=== PATIENT | female | born 2000 ===

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

== ENCOUNTER 2022-10-25 06:18 | Emergency (ER) | payer OTHER ==
[2022-10-25 06:54] LABS: BILIRUBIN,URINE NEGATIVE (NEGATIVE); GLUCOSE, URINE (UA) NEGATIVE (NEGATIVE); KETONES,URINE (UA) NEGATIVE (NEGATIVE); LEUKOCYTE ESTERASE, URINE SMALL (NEGATIVE); NITRITE,URINE NEGATIVE (NEGATIVE); OCCULT BLOOD,URINE NEGATIVE (NEGATIVE); PROTEIN,URINE NEGATIVE (NEGATIVE); UROBILINOGEN,URINE 0.2 (NORMAL) E.U./dL (NORMAL)
[2022-10-25 06:57] LABS: CLARITY,URINE SL. CLOUDY (CLEAR)
[2022-10-25 06:58] LABS: BASOPHILS # (AUTO) 0.1 10^3/uL (0.0-0.1); BASOPHILS % (AUTO) 0.4 %; EOSINOPHILS % (AUTO) 0.1 %; HCT - HEMATOCRIT 41.7 % (37.0-47.0); HGB - HEMOGLOBIN 13.6 g/dL (12.0-16.0); LYMPHOCYTES # (AUTO) 1.1 10^3/uL (1.5-3.5); LYMPHOCYTES % (AUTO) 8.2 %; MEAN CORPUSCULAR HEMOGLOBIN 26.6 pg (27.0-31.0); MEAN CORPUSCULAR HGB CONC 32.6 g/dL (32.0-36.0); MEAN CORPUSCULAR VOLUME 81.6 fL (81.0-99.0); MEAN PLATELET VOLUME 9.6 fL (7.9-10.8); MONOCYTES # (AUTO) 0.3 10^3/uL (0.0-1.0); MONOCYTES % (AUTO) 2.7 %; NEUTROPHILS # (AUTO) 11.3 10^3/uL (1.5-6.6); NEUTROPHILS % (AUTO) 88.1 %; PLT - PLATELET COUNT 287 10^3/uL (130-450); RED BLOOD COUNT 5.11 10^6/uL (4.20-5.40); RED CELL DISTRIBUTION WIDTH 13.6 % (12.0-15.0); WHITE BLOOD COUNT 12.8 x10^3/uL (4.8-10.8)
[2022-10-25 07:00] LABS: AMORPHOUS SEDIMENT,UR Marked /LPF; BACTERIA,URINE Moderate /HPF (None Seen); RBC,URINE 0-5 /HPF (0-5); SQUAMOUS EPITHELIAL CELL,UR FEW Squamous (<= Few)
[2022-10-25 07:11] LABS: ALBUMIN 4.1 g/dL (3.2-5.5); ALBUMIN/GLOBULIN RATIO 1.1 (1.0-2.2); BILIRUBIN,TOTAL 0.6 mg/dL (0.2-1.0); CALCIUM 9.1 mg/dL (8.5-10.3); CREATININE 0.6 mg/dL (0.4-1.0); POTASSIUM 3.9 mmol/L (3.5-5.0); TOTAL PROTEIN 7.8 g/dL (6.7-8.2)
--- NOTE | 2022-10-25 07:31 | ED Physician Documentation ---
PD HPI ABD PAIN - Stated complaint Stated Complaint: ABD PX - Chief complaint Chief Complaint: Abd Pain - History obtained from History obtained from: Patient - History of Present Illness Timing - onset: How many days ago (3) Timing - duration: Days (3) Timing - details: Gradual onset, Still present, Waxing and waning Quality: Cramping, Aching, Pain Location: LLQ Radiation: Left flank Worsened by: Moving, Palpation. No: Eating Associated symptoms: Nausea, Loss of appetite. No: Fever, Diarrhea, Constipation Similar symptoms before: Diagnosis (she states the pain is similar to prior kidney stones passing with UTI concurrent.) Recently seen: Not recently seen Review of Systems Constitutional: denies: Fever, Chills Nose: denies: Rhinorrhea / runny nose, Congestion Throat: denies: Sore throat Respiratory: denies: Cough GI: reports: Abdominal Pain, Nausea. denies: Abdominal Swelling, Vomiting, Constipation, Diarrhea : reports: Frequency. denies: Discharge Skin: denies: Rash PD PAST MEDICAL HISTORY - Past Medical History Cardiovascular: None DRY END TESTER: None : Kidney stones - Present Medications Home Medications: Ambulatory Orders Medication Instructions Recorded Confirmed Acetaminophen [Tylenol] 650 mg PO Q6H PRN 10/25/22 10/25/22 HYDROcod/ACETAM 5/325 [[place] 5/325] 1 ea PO Q6H PRN #12 tablet 10/25/22 HYDROcod/ACETAM 5/325 [[place] 5/325] 1 ea PO Q6H PRN #18 tablet 10/25/22 Meloxicam 15 mg PO 10/25/22 Naproxen 500 mg PO BID #14 tab 10/25/22 Ondansetron Odt [Zofran] 4 mg TL Q6H PRN #10 tablet 10/25/22 cephALEXin [Keflex] 500 mg PO TID #20 cap 10/25/22 traMADol [Ultram] 50 mg PO Q4-6H 10/25/22 10/25/22 - Allergies Allergies/Adverse Reactions: Allergies Allergy/AdvReac Type Severity Reaction Status Date / Time No Known Drug Allergies Allergy Verified 10/25/22 06:41 PD ED PE NORMAL - Vitals Vital signs reviewed: Yes - General General: Alert and oriented X 3, Well developed/nourished - Neck Neck: Supple, no meningeal sign, No adenopathy - Cardiac Cardiac: RRR, No murmur - Respiratory Respiratory: Clear bilaterally - Abdomen Abdomen: Normal bowel sounds, Soft, Non distended, No organomegaly, Other (tender left abdomen and left lower back without rash, sores. SOmewhat tender to CVA area left. ) - Female Female : Deferred - Rectal Rectal: Deferred - Back Back: No spinal TTP - Derm Derm: Normal color, Warm and dry, No rash - Neuro Neuro: Alert and oriented X 3, No motor deficit, No sensory deficit, Normal speech Results - Vitals Vitals: Vital Signs - 24 hr 10/25/22 10/25/22 10/25/22 06:38 06:41 10:12 Temperature 36.2 C L Heart Rate 98 91 88 Respiratory 17 17 18 Rate Blood Pressure 142/86 H 143/83 H O2 Saturation 99 96 95 10/25/22 10:47 Temperature Heart Rate 86 Respiratory 18 Rate Blood Pressure 119/78 O2 Saturation 100 Oxygen O2 Source Room air - Labs Labs: Laboratory Tests 10/25/22 10/25/22 10/25/22 06:41 06:54 06:54 WBC 12.8 H RBC 5.11 Hgb 13.6 Hct 41.7 MCV 81.6 MCH 26.6 L MCHC 32.6 RDW 13.6 Plt Count 287 MPV 9.6 Neut # (Auto) 11.3 H Lymph # (Auto) 1.1 L Reagan # (Auto) 0.3 Eos # (Auto) 0.0 Baso # (Auto) 0.1 Absolute Nucleated RBC 0.00 Nucleated RBC % 0.0 Sodium 136 Potassium 3.9 Chloride 103 Carbon Dioxide 25 Anion Gap 8.0 BUN 13 Creatinine 0.6 Estimated GFR (MDRD) 126 Glucose 134 H Calcium 9.1 Total Bilirubin 0.6 AST 19 ALT 24 Alkaline Phosphatase 102 Total Protein 7.8 Albumin 4.1 Globulin 3.7 Albumin/Globulin Ratio 1.1 Lipase 26 Urine Color YELLOW Urine Clarity SL. CLOUDY Urine pH 8.0 H Ur Specific [place] 1.020 Urine Protein NEGATIVE Urine Glucose (UA) NEGATIVE Urine Ketones NEGATIVE Urine Occult Blood NEGATIVE Urine Nitrite NEGATIVE Urine Bilirubin NEGATIVE Urine Urobilinogen 0.2 (NORMAL) Ur Leukocyte Esterase SMALL H Urine RBC 0-5 Urine WBC 4-5 Ur Squamous Epith Cells FEW Squamous Amorphous Sediment Marked Urine Bacteria Moderate H Ur Microscopic Review INDICATED Urine Culture Comments INDICATED - Rads (name of study) KUB CT Relevant Findings:: Prelim report reviewed, EMP independent interpretation of test (stone in right kidney parenchyma. No stones in ureters. No other acute process to account for pain. ), See rad report PD Medical Decision Making - ED course Complexity details: reviewed results, re-evaluated patient (patient states pain much better with IM toradol and Dilaudid 1 mg. No adverse effects. ), considered differential (pain abd for 3 days, which she says is feeling like prior UTI/stones. Can get CT as well as labs and UA. ), d/w patient Reviewed Lab Results: Labs are not bad. Urine clearance is good. WBC elevated at 12K suggestive of infectious cause. UA is not too bad but in light of current symptoms, there is increased lieklihood of the Urine having a true infection goes up. I will start treating as UTI, and then cam stop the antibiotics if negative. Patient in favor of that approach. Departure - Departure Disposition: 01 Home, Self Care Clinical Impression: UTI (urinary tract infection), Abdominal pain, left lateral Condition: Stable Prescriptions: cephALEXin [Keflex] 500 mg PO TID #20 cap Naproxen 500 mg PO BID #14 tab HYDROcod/ACETAM 5/325 [[place] 5/325] 1 ea PO Q6H PRN #12 tablet PRN Reason: Pain HYDROcod/ACETAM 5/325 [[place] 5/325] 1 ea PO Q6H PRN #18 tablet PRN Reason: Pain Ondansetron Odt [Zofran] 4 mg TL Q6H PRN #10 tablet PRN Reason: Nausea / Vomiting Comments: Your CT scan shows a stone in the right kidney itself but is not in a position to cause problems or blockages or pains. There were no stones noted on the left side. No other abnormality to account for the pain. Your urine sample does show signs of infection so presume a bladder/kidney infection as a cause of your symptoms. Cephalexin antibiotic as directed for the next week. Add naproxen anti- inflammatory with food to help with pain and inflammation. Add ondansetron if needed for nausea and Tylenol if needed for pains or hydrocodone/acetaminophen if needed for worse pain. I would anticipate improvement over the next 2 to 3 days and resolved by 3 to 5 days. Recheck if not improving in a good timeframe. Return if worse. I sent your prescriptions to [facility] pharmacy. I am prescribing a short course of narcotic pain medication for you. These are potentially dangerous and addictive medications that should be used carefully. These medications may constipate you. Take an [id number] stool softener such as docusate twice daily with plenty of water while taking these medications. If you go 24 hours without a bowel movement, take [id number] MiraLAX, per package instructions. Do not drink or drive while taking these medications. If you received narcotic or sedating medications while in the emergency department do not drive for 24 hours. Store this medication in a safe, secure place and out of reach of children. It is a violation of federal law to give or sell this medication to another person or to use in a manner other than prescribed. The ED will not refill narcotic prescriptions, including prescriptions lost or stolen. You can dispose of unwanted medications at the [facility]'s office or at several pharmacies such as [facility]. Discharge Date/Time: 10/25/22 10:53
[2022-10-25] MEDS ORDERED: KETOROLAC 30 MG/ML VIAL IM STA (08:25)
[2022-10-25] MEDS ORDERED: cephALEXin 250 MG CAPSULE PO STA (08:25)
[2022-10-25] MEDS ORDERED: HYDROmorphone 1 MG/ML CARPUJECT IM STA (08:25)
--- NOTE | 2022-10-25 09:06 | CT Report ---
PROCEDURE: ABDOMEN/PELVIS WO INDICATIONS: left back/flank pain;history of stones. TECHNIQUE: Noncontrast 5 mm thick sections acquired from the diaphragms to the symphysis. 5 mm coronal and sagi ttal reformats were then performed. For radiation dose reduction, the following was used: automated exposure control, adjustment of mA and/or kV according to patient size. COMPARISON: None. FINDINGS: Visualized lung bases: No pleural effusion. Liver and biliary tree: Unremarkable noncontrast appearance. Gallbladder: No radiopaque cholelithiasis. Spleen: Unremarkable noncontrast appearance. Pancreas: Unremarkable noncontrast appearance. Adrenal glands: Unremarkable noncontrast appearance. Kidneys and ureters: 5 mm nonobstructing stone right inferior kidney. No right hydroureteronephrosis. 1.4 cm nonobstructing stone left mid kidney, internal density 1059 Hounsfield units. No left hydrour eteronephrosis. Gastrointestinal tract: No bowel obstruction. Peritoneal cavity: No free air or free fluid. Bladder: No stones identified. Pelvic organs: Unremarkable noncontrast appearance. Vasculature: No abdominal aortic aneurysm. Musculoskeletal: No acute osseous abnormality identified. IMPRESSION: No hydronephrosis or obstructing renal stone. Nonobstructing renal stones are present bilaterally. Reviewed by: Estuardo Mccollum MD on 10/25/2022 9:05 AM PDT Approved by: Estuardo Mccollum MD on 10/25/2022 9:05 AM PDT Station ID: [id number]
[2022-10-25 10:51] VITALS: BP 119/78
== END 2022-10-25 10:53 | disposition home or self-care (01) ==
LOC: ED 06:18
DX: N39.0 Urinary tract infection, site not specified (principal); R10.32 Left lower quadrant pain
CPT/HCPCS: 36415; 74176; 80053; 81001; 83690; 85025; 87086; 87181; 96372; 99284; A9270; J1170; 81003